=== PATIENT | male | born 1935 | race African-American/Black ===

== ENCOUNTER 2017-12-11 22:09 | Inpatient (IN) | payer MEDICARE, MEDICAID ==
[~2017-12-11] VITALS: Ht 177.8 cm; Wt 68.5 kg
--- NOTE | 2017-12-11 22:16 | Emergency Room Report ---
History of Present Illness General Chief Complaint: General Complaint Source: Family Member, Medical Record, EMS Present Illness HPI This is an 82-year-old male with a history dementia. He was sent in by [facility] for chief complaint of increased agitation. Onset for last few days per daughter. he has been pulling things off the wall and his dresser No focal deficit. No fever or chills. No slurred speech. History is from [facility] note and EMS since patient is not a good historian because of his dementia. Allergies: Coded Allergies: No Known Allergies (Unverified , 12/11/17) Patient History Past Medical History: see triage record, old chart reviewed Past Surgical History: other Pertinent Family History: none Social History: Denies: smoking Immunizations: other Reviewed Nursing Documentation: PMH: Agreed; PSxH: Agreed Nursing Documentation-PMH Past Medical History: No History, Except For Hx Hypertension: Yes - abnormal gait Hx Neurological Problems: Yes - unspecified dementia Review of Systems Eye: Denies: eye pain, blurred vision ENT: Denies: ear pain, nose congestion, throat swelling Respiratory: Denies: cough, shortness of breath Cardiovascular: Denies: chest pain, palpitations Gastrointestinal: Denies: abdominal pain, diarrhea, nausea, vomiting Musculoskeletal: Denies: back pain, joint pain Skin: Denies: rash Neurological: Denies: headache, numbness Endocrine: Denies: increased thirst, increased urine Hematologic/Lymphatic: Denies: easy bruising All Other Systems: negative except mentioned in HPI Physical Exam Vital Signs Date Time Temp Pulse Resp B/P (MAP) Pulse Ox O2 Delivery O2 Flow Rate FiO2 12/11/17 22:06 98.0 95 16 101/67 96 Room Air 98.1 vitals normal Sp02 EP Interpretation: reviewed, normal General Appearance: well appearing, no apparent distress, alert Head: normocephalic, atraumatic Eyes: bilateral eye PERRL, bilateral eye EOMI ENT: hearing grossly normal, normal pharynx Neck: full range of motion, supple, no meningismus Respiratory: chest non-tender, lungs clear, normal breath sounds Cardiovascular #1: regular rate, rhythm, no murmur Gastrointestinal: normal bowel sounds, non tender, no mass, no organomegaly, no bruit, non-distended Musculoskeletal: back normal, normal range of motion Neurologic: alert, grossly normal Psychiatric: mood/affect normal Skin: warm/dry Medical Decision Making Diagnostic Impression: Primary Impression: Acute encephalopathy Additional Impressions: Agitation Proteinuria Qualified Codes: R80.9 - Proteinuria, unspecified Dehydration ER Course Patient presents with increased agitation and delirium. No focal deficit. CT scan negative for acute stroke. No evidence of infection. This may be declining dementia. He does show some mild dehydration. We'll admit for further workup. I discussed the case with Dr. Jackson who will be admitting for Dr. Hernandez. I also discussed the case with Dr. Harvey, psychiatrist at the [facility]. She also recommends admission for psychiatric evaluation. Lab Results Impression labs unremarkable EKG Diagnostic Results Rate: normal Rhythm: NSR ST Segments: no acute changes Rhythm Strip Diag. Results Rhythm Strip Time: 23:14 EP Interpretation: yes Rate: 80 Rhythm: NSR, no PVC's, no ectopy CT/MRI/US Diagnostic Results CT/MRI/US Diagnostic Results : Imaging Test Ordered: Ct head Impression Neg per radiologist. Last Vital Signs Date Time Temp Pulse Resp B/P (MAP) Pulse Ox O2 Delivery O2 Flow Rate FiO2 12/11/17 22:06 98.0 95 16 101/67 96 Room Air 98.1 Status: improved Disposition: ADMITTED INPATIENT Condition: Serious NICOLETTE WALTERS M.D. Dec 11, 2017 22:16
[2017-12-11 22:43] LABS: BASOPHILS % (AUTO) 0.6 % (0.0-2.0); EOSINOPHILS % (AUTO) 0.6 % (0.0-3.0); HEMATOCRIT 42.2 % (42.0-52.0); HEMOGLOBIN 14.1 G/DL (14.2-18.0); LYMPHOCYTES % (AUTO) 21.2 % (20.0-45.0); MEAN CORPUSCULAR VOLUME 91 FL (80-99); MONOCYTES % (AUTO) 6.5 % (1.0-10.0); PLATELET COUNT 132 K/UL (150-450); RED BLOOD COUNT 4.62 M/UL (4.70-6.10); RED CELL DISTRIBUTION WIDTH 13.3 % (11.6-14.8); WHITE BLOOD COUNT 4.7 K/UL (4.8-10.8)
[2017-12-11] MEDS ORDERED: LORazepam Inj 2mg/ml 1ml IV PRN (22:45)
[2017-12-11] MEDS ORDERED: Miralax 17gm pkt ORAL PRN (22:45)
[2017-12-11] MEDS ORDERED: Zolpidem 5mg tab ORAL PRN (22:45)
[2017-12-11] MEDS ORDERED: Mylanta II UD 30ml ORAL PRN (22:45)
[2017-12-11 22:54] LABS: ANION GAP 5 mmol/L (5-15); BLOOD UREA NITROGEN 20 mg/dL (7-18); CALCIUM 9.7 MG/DL (8.5-10.1); CARBON DIOXIDE 30 MMOL/L (21-32); CHLORIDE 109 MMOL/L (98-107); CREATININE 1.4 MG/DL (0.55-1.30); POTASSIUM 3.7 MMOL/L (3.5-5.1); SODIUM 144 MMOL/L (136-145)
[2017-12-11 22:57] LABS: APPEARANCE,URINE SLIGHTLY CLOUDY; BILIRUBIN, URINE 1+ (NEGATIVE); GLUCOSE, URINE (UA) NEGATIVE (NEGATIVE); KETONES,URINE 1+ (NEGATIVE); LEUKOCYTE ESTERASE ,URINE 1+ (NEGATIVE); NITRITE,URINE NEGATIVE (NEGATIVE); PH,URINE 5 (4.5-8.0); PROTEIN,URINE 2+ (NEGATIVE); UROBILINOGEN,URINE 8 MG/DL (0.0-1.0)
[2017-12-11 22:58] LABS: COLOR,URINE AMBER
[2017-12-11] MEDS ORDERED: LORazepam Inj 2mg/ml 1ml IV ONE ×2 (23:15→23:45)
[2017-12-11] MEDS ORDERED: Morphine Sulfate 4mg/ml Inj IVP PRN (23:15)
[2017-12-11] MEDS ORDERED: Haloperidol 5mg/ml Inj IM ONE (23:45)
[2017-12-11] MEDS: Haloperidol 5mg/ml Inj IM PRN (23:51)
[2017-12-12] VITALS (8 sets, daily range): BP systolic 115–148; BP diastolic 65–89
[2017-12-12] MEDS ORDERED: MELATONIN1 M2 PO (00:57)
[2017-12-12] MEDS ORDERED: LATANOPROST2.5 ML BOTH EYES (00:57)
[2017-12-12] MEDS ORDERED: NAMENDA5 MG ORAL (00:57)
[2017-12-12] MEDS ORDERED: ATIVAN2 MG ORAL (00:57)
[2017-12-12] MEDS ORDERED: MULTIVITAMINS1 EAC2 ORAL (00:57)
[2017-12-12] MEDS ORDERED: ACETAMINOPHEN325 M1 ORAL (02:22)
--- NOTE | 2017-12-12 09:51 | Diagnostic Imaging Report ---
Indication: Altered mental status Technique: Contiguous 5 mm thick transaxial imaging of the head obtained in a Siemens Sensation [address] scanner. Soft tissue and bone windows generated. Automatic Exposure Control was utilized. Total Dose length Product (DLP): 1407.[address] Dose Index Volume (CTDIvol): 70.38 mGy Comparison: none Findings: There is moderate prominence of the ventricles, basal cisterns, and cerebral sulci consistent with atrophy. Moderate, nonspecific, white matter hypoattenuation is noted throughout the brain consistent with chronic small vessel disease. There is no midline shift, edema, acute hemorrhage, mass effect, or abnormal extra-axial fluid collections. Bones and extra osseous soft tissues are unremarkable. Impression: No acute intracranial bleed, mass effect or edema. Moderate atrophy of the brain. Evidence of chronic small vessel disease involving white matter tracts. The CT scanner at [facility] is accredited by the [employer] and the scans are performed using dose optimization techniques as appropriate to a performed exam including Automatic Exposure control.
[2017-12-12 10:22] LABS: HEMATOCRIT 39.8 % (42.0-52.0); HEMOGLOBIN 13.3 G/DL (14.2-18.0); MEAN CORPUSCULAR VOLUME 92 FL (80-99); PLATELET COUNT 104 K/UL (150-450); RED BLOOD COUNT 4.32 M/UL (4.70-6.10); RED CELL DISTRIBUTION WIDTH 13.4 % (11.6-14.8); WHITE BLOOD COUNT 3.4 K/UL (4.8-10.8)
[2017-12-12 10:53] LABS: ALANINE AMINOTRANSFERASE 25 U/L (12-78); ALBUMIN 3.3 G/DL (3.4-5.0); ALBUMIN/GLOBULIN RATIO 1.1 (1.0-2.7); ALKALINE PHOSPHATASE 66 U/L (46-116); ANION GAP 4 mmol/L (5-15); ASPARTATE AMINO TRANSFERASE 25 U/L (15-37); BILIRUBIN,TOTAL 0.8 MG/DL (0.2-1.0); BLOOD UREA NITROGEN 20 mg/dL (7-18); CALCIUM 9.2 MG/DL (8.5-10.1); CARBON DIOXIDE 29 MMOL/L (21-32); CHLORIDE 111 MMOL/L (98-107); CHOLESTEROL 113 MG/DL (< 200); CREATININE 1.2 MG/DL (0.55-1.30); HDL CHOLESTEROL 39 MG/DL (40-60); POTASSIUM 3.6 MMOL/L (3.5-5.1); SODIUM 144 MMOL/L (136-145); TRIGLYCERIDES 27 MG/DL (30-150)
--- NOTE | 2017-12-12 11:41 | History & Physical ---
History and Physical History & Physicial Dictated for Int Med-Dr Hernandez no. [id number]. MIGUEL JAEGER Dec 12, 2017 11:41
--- NOTE | 2017-12-12 12:13 | Consultation ---
History of Present Illness General Date patient seen: Dec 12, 2017 Chief Complaint: General Complaint Present Illness HPI 82-year-old male with a history dementia and mmp who was admitted for agitation and altered mental status. the pt was severely agitated and confused. the pt was unable to provide hx and i spoke with family. the pt was labile. family in room memory impairment Allergies: Coded Allergies: No Known Allergies (Unverified , 12/11/17) Medication History Scheduled Latanoprost* (Xalatan*), 1 DROP BOTH EYES BEDTIME, (Reported) Lorazepam* (Ativan*), 2 MG ORAL BEDTIME, (Reported) Melatonin (Melatonin), 3 MG PO BEDTIME, (Reported) Memantine Hcl* (Namenda*), 5 MG ORAL BID, (Reported) Multivitamins* (Multivitamins*), 1 TAB ORAL DAILY, (Reported) Scheduled PRN Acetaminophen* (Acetaminophen 325MG Tablet*), 650 MG ORAL Q4H PRN for For Pain, (Reported) Patient History Limited by: medical condition History Provided By: Patient, Medical Record, PMD Healthcare decision maker Resuscitation status Full Code Advanced Directive on File Past Medical/Surgical History Past Medical/Surgical History: (1) Dehydration (2) Proteinuria (3) Agitation (4) Alzheimer's dementia (5) Acute encephalopathy (6) ATN (acute tubular necrosis) Review of Systems Psychiatric: Reports: anxiety, depressed feelings, emotional problems, hallucinations Physical Exam General Appearance: no apparent distress, alert, confused, agitated Last 24 Hour Vital Signs Date Time Temp Pulse Resp B/P (MAP) Pulse Ox O2 Delivery O2 Flow Rate FiO2 12/12/17 09:00 97.8 74 16 148/89 100 Room Air 97.8 12/12/17 08:00 97.8 74 16 148/89 100 Room Air 97.8 12/12/17 04:00 96.5 71 16 132/80 100 Room Air 96.5 12/12/17 02:09 69 19 126/80 100 Room Air 12/12/17 02:00 98.3 66 13 121/70 100 Room Air 98.3 12/12/17 01:55 98.1 69 19 126/80 100 Room Air 98.1 12/12/17 01:41 98.1 76 24 129/72 98 Room Air 98.1 12/12/17 01:10 98.1 65 12 115/75 98 Room Air 98.1 12/11/17 22:06 98.0 95 16 101/67 96 Room Air 98.1 Laboratory Tests Test 12/11/17 22:30 12/11/17 22:40 12/12/17 09:50 White Blood Count 4.7 K/UL (4.8-10.8) L 3.4 K/UL (4.8-10.8) L Red Blood Count 4.62 M/UL (4.70-6.10) L 4.32 M/UL (4.70-6.10) L Hemoglobin 14.1 G/DL (14.2-18.0) L 13.3 G/DL (14.2-18.0) L Hematocrit 42.2 % (42.0-52.0) 39.8 % (42.0-52.0) L Mean Corpuscular Volume 91 FL (80-99) 92 FL (80-99) Mean Corpuscular Hemoglobin 30.6 PG (27.0-31.0) 30.7 PG (27.0-31.0) Mean Corpuscular Hemoglobin Concent 33.5 G/DL (32.0-36.0) 33.4 G/DL (32.0-36.0) Red Cell Distribution Width 13.3 % (11.6-14.8) 13.4 % (11.6-14.8) Platelet Count 132 K/UL (150-450) L 104 K/UL (150-450) L Mean Platelet Volume 8.7 FL (6.5-10.1) 9.0 FL (6.5-10.1) Neutrophils (%) (Auto) 71.0 % (45.0-75.0) % (45.0-75.0) Lymphocytes (%) (Auto) 21.2 % (20.0-45.0) % (20.0-45.0) Monocytes (%) (Auto) 6.5 % (1.0-10.0) % (1.0-10.0) Eosinophils (%) (Auto) 0.6 % (0.0-3.0) % (0.0-3.0) Basophils (%) (Auto) 0.6 % (0.0-2.0) % (0.0-2.0) Sodium Level 144 MMOL/L (136-145) 144 MMOL/L (136-145) Potassium Level 3.7 MMOL/L (3.5-5.1) 3.6 MMOL/L (3.5-5.1) Chloride Level 109 MMOL/L (98-107) H 111 MMOL/L (98-107) H Carbon Dioxide Level 30 MMOL/L (21-32) 29 MMOL/L (21-32) Anion Gap 5 mmol/L (5-15) 4 mmol/L (5-15) L Blood Urea Nitrogen 20 mg/dL (7-18) H 20 mg/dL (7-18) H Creatinine 1.4 MG/DL (0.55-1.30) H 1.2 MG/DL (0.55-1.30) Estimat Glomerular Filtration Rate mL/min (>60) mL/min (>60) Glucose Level 93 MG/DL (74-106) 102 MG/DL (74-106) Calcium Level 9.7 MG/DL (8.5-10.1) 9.2 MG/DL (8.5-10.1) Troponin I 0.010 ng/mL (0.000-0.056) Urine Color Ada Urine Appearance Slightly cloudy Urine pH 5 (4.5-8.0) Urine Specific [place] 1.025 (1.005-1.035) Urine Protein 2+ (NEGATIVE) H Urine Glucose (UA) Negative (NEGATIVE) Urine Ketones 1+ (NEGATIVE) H Urine Occult Blood 4+ (NEGATIVE) H Urine Nitrite Negative (NEGATIVE) Urine Bilirubin 1+ (NEGATIVE) H Urine Ictotest Positive Urine Urobilinogen 8 MG/DL (0.0-1.0) H Urine Leukocyte Esterase 1+ (NEGATIVE) H Urine RBC 10-15 /HPF (0 - 0) H Urine WBC 0-2 /HPF (0 - 0) Urine Squamous Epithelial Cells Occasional /LPF Urine Bacteria Few /HPF (NONE) Differential Total Cells Counted 100 Neutrophils % (Manual) 65 % (45-75) Lymphocytes % (Manual) 26 % (20-45) Monocytes % (Manual) 8 % (1-10) Eosinophils % (Manual) 1 % (0-3) Basophils % (Manual) 0 % (0-2) Band Neutrophils 0 % (0-8) Platelet Estimate Decreased L Platelet Morphology Normal Red Blood Cell Morphology Normal Total Bilirubin 0.8 MG/DL (0.2-1.0) Aspartate Amino Transf (AST/SGOT) 25 U/L (15-37) Alanine Aminotransferase (ALT/SGPT) 25 U/L (12-78) Alkaline Phosphatase 66 U/L (46-116) Total Protein 6.2 G/DL (6.4-8.2) L Albumin 3.3 G/DL (3.4-5.0) L Globulin 2.9 g/dL Albumin/Globulin Ratio 1.1 (1.0-2.7) Triglycerides Level 27 MG/DL (30-150) L Cholesterol Level 113 MG/DL (< 200) LDL Cholesterol 78 mg/dL (<100) HDL Cholesterol 39 MG/DL (40-60) L Cholesterol/HDL Ratio 2.9 (3.3-4.4) L Thyroid Stimulating Hormone (TSH) 2.086 uiU/mL (0.358-3.740) Height (Feet): 5 Height (Inches): 10.00 Weight (Pounds): 151 Medications Current Medications Medications (Trade) Dose Ordered Sig/Honey Route PRN Reason Start Time Stop Time Status Last Admin Dose Admin Acetaminophen (Tylenol) 650 mg Q4H PRN ORAL fever 12/11/17 22:45 01/10/18 22:44 Al Hydroxide/Mg Hydroxide (Mylanta II) 30 ml Q6H PRN ORAL dyspepsia 12/11/17 22:45 01/10/18 22:44 Ceftriaxone Sodium 1 gm/ Dextrose 110 ml @ 220 mls/hr Q24H IVPB 12/12/17 13:00 12/19/17 12:59 Dextrose (Dextrose 50%) STAT PRN IV Hypoglycemia 12/11/17 22:45 01/10/18 22:44 Dextrose/ Electrolytes 1,000 ml @ 75 mls/hr [id number] IV 12/12/17 12:30 01/11/18 12:29 Haloperidol Lactate (Haldol) 5 mg Q6H PRN IM Agitation 12/11/17 23:00 01/10/18 22:59 12/11/17 23:51 Lorazepam (Ativan 2mg/ml 1ml) 0.5 mg Q4H PRN IV For Anxiety 12/11/17 22:45 12/18/17 22:44 12/11/17 23:51 Morphine Sulfate (Morphine Sulfate) 1 mg Q4H PRN IVP pain 12/11/17 23:15 12/18/17 23:14 Ondansetron HCl (Zofran) 4 mg Q6H PRN IVP Nausea & Vomiting 12/11/17 22:45 01/10/18 22:44 Polyethylene Glycol (Miralax) 17 gm HSPRN PRN ORAL Constipation 12/11/17 22:45 01/10/18 22:44 Zolpidem Tartrate (Ambien) 5 mg HSPRN PRN ORAL Insomnia 12/11/17 22:45 12/18/17 22:44 Assessment/Plan Assessment/Plan dementia with behavioral disturbance encephalopathy -haldol prn -ativan prn -zyprexa -Libia Almaguer M.D. Dec 12, 2017 12:13
[2017-12-12] MEDS: Haloperidol 5mg/ml Inj IM PRN ×3 (12:27→21:15)
[2017-12-12] MEDS ORDERED: cefTRIAXone 1 GM in D5W 55 ML IVPB SCH (13:00)
[2017-12-12] MEDS ORDERED: cefTRIAXone 1 GM in D5W 110 ML IVPB SCH (13:00)
--- NOTE | 2017-12-12 13:26 | Consultation ---
History of Present Illness General Date patient seen: Dec 12, 2017 Chief Complaint: General Complaint Present Illness HPI 82-year-old male with a history dementia and psychiatric disorder, under the care of Dr. Wiggins, group home resident, sent in by paramedics for chief complaint of increased agitation. Onset for last few days per daughter. He has been pulling things off the wall and his dresser No focal deficit. No fever or chills. No slurred speech. He was found to have ATN, cloudy urine and admitted to med/surg for furhter evaluation. Allergies: Coded Allergies: No Known Allergies (Unverified , 12/11/17) Medication History Scheduled Latanoprost* (Xalatan*), 1 DROP BOTH EYES BEDTIME, (Reported) Lorazepam* (Ativan*), 2 MG ORAL BEDTIME, (Reported) Melatonin (Melatonin), 3 MG PO BEDTIME, (Reported) Memantine Hcl* (Namenda*), 5 MG ORAL BID, (Reported) Multivitamins* (Multivitamins*), 1 TAB ORAL DAILY, (Reported) Scheduled PRN Acetaminophen* (Acetaminophen 325MG Tablet*), 650 MG ORAL Q4H PRN for For Pain, (Reported) Patient History Healthcare decision maker Resuscitation status Full Code Advanced Directive on File Past Medical/Surgical History Past Medical/Surgical History: (1) Alzheimer's dementia Review of Systems Constitutional: Reports: no symptoms Hematologic/Lymphatic: Denies: no symptoms, see HPI, anemia, blood clots, easy bleeding, easy bruising, swollen glands, diathesis, other All Other Systems: negative except mentioned in HPI Physical Exam General Appearance: cachetic Lines, tubes and drains: peripheral HEENT: normocephalic, atraumatic Neck: non-tender, supple Respiratory/Chest: chest wall non-tender, lungs clear Breasts: no masses Cardiovascular/Chest: normal rate Abdomen: normal bowel sounds Genitourinary/Rectal: normal genital exam Last 24 Hour Vital Signs Date Time Temp Pulse Resp B/P (MAP) Pulse Ox O2 Delivery O2 Flow Rate FiO2 12/12/17 09:00 97.8 74 16 148/89 100 Room Air 97.8 12/12/17 08:00 97.8 74 16 148/89 100 Room Air 97.8 12/12/17 04:00 96.5 71 16 132/80 100 Room Air 96.5 12/12/17 02:09 69 19 126/80 100 Room Air 12/12/17 02:00 98.3 66 13 121/70 100 Room Air 98.3 12/12/17 01:55 98.1 69 19 126/80 100 Room Air 98.1 12/12/17 01:41 98.1 76 24 129/72 98 Room Air 98.1 12/12/17 01:10 98.1 65 12 115/75 98 Room Air 98.1 12/11/17 22:06 98.0 95 16 101/67 96 Room Air 98.1 Laboratory Tests Test 12/11/17 22:30 12/11/17 22:40 12/12/17 09:50 White Blood Count 4.7 K/UL (4.8-10.8) L 3.4 K/UL (4.8-10.8) L Red Blood Count 4.62 M/UL (4.70-6.10) L 4.32 M/UL (4.70-6.10) L Hemoglobin 14.1 G/DL (14.2-18.0) L 13.3 G/DL (14.2-18.0) L Hematocrit 42.2 % (42.0-52.0) 39.8 % (42.0-52.0) L Mean Corpuscular Volume 91 FL (80-99) 92 FL (80-99) Mean Corpuscular Hemoglobin 30.6 PG (27.0-31.0) 30.7 PG (27.0-31.0) Mean Corpuscular Hemoglobin Concent 33.5 G/DL (32.0-36.0) 33.4 G/DL (32.0-36.0) Red Cell Distribution Width 13.3 % (11.6-14.8) 13.4 % (11.6-14.8) Platelet Count 132 K/UL (150-450) L 104 K/UL (150-450) L Mean Platelet Volume 8.7 FL (6.5-10.1) 9.0 FL (6.5-10.1) Neutrophils (%) (Auto) 71.0 % (45.0-75.0) % (45.0-75.0) Lymphocytes (%) (Auto) 21.2 % (20.0-45.0) % (20.0-45.0) Monocytes (%) (Auto) 6.5 % (1.0-10.0) % (1.0-10.0) Eosinophils (%) (Auto) 0.6 % (0.0-3.0) % (0.0-3.0) Basophils (%) (Auto) 0.6 % (0.0-2.0) % (0.0-2.0) Sodium Level 144 MMOL/L (136-145) 144 MMOL/L (136-145) Potassium Level 3.7 MMOL/L (3.5-5.1) 3.6 MMOL/L (3.5-5.1) Chloride Level 109 MMOL/L (98-107) H 111 MMOL/L (98-107) H Carbon Dioxide Level 30 MMOL/L (21-32) 29 MMOL/L (21-32) Anion Gap 5 mmol/L (5-15) 4 mmol/L (5-15) L Blood Urea Nitrogen 20 mg/dL (7-18) H 20 mg/dL (7-18) H Creatinine 1.4 MG/DL (0.55-1.30) H 1.2 MG/DL (0.55-1.30) Estimat Glomerular Filtration Rate mL/min (>60) mL/min (>60) Glucose Level 93 MG/DL (74-106) 102 MG/DL (74-106) Calcium Level 9.7 MG/DL (8.5-10.1) 9.2 MG/DL (8.5-10.1) Troponin I 0.010 ng/mL (0.000-0.056) Urine Color Ada Urine Appearance Slightly cloudy Urine pH 5 (4.5-8.0) Urine Specific [place] 1.025 (1.005-1.035) Urine Protein 2+ (NEGATIVE) H Urine Glucose (UA) Negative (NEGATIVE) Urine Ketones 1+ (NEGATIVE) H Urine Occult Blood 4+ (NEGATIVE) H Urine Nitrite Negative (NEGATIVE) Urine Bilirubin 1+ (NEGATIVE) H Urine Ictotest Positive Urine Urobilinogen 8 MG/DL (0.0-1.0) H Urine Leukocyte Esterase 1+ (NEGATIVE) H Urine RBC 10-15 /HPF (0 - 0) H Urine WBC 0-2 /HPF (0 - 0) Urine Squamous Epithelial Cells Occasional /LPF Urine Bacteria Few /HPF (NONE) Differential Total Cells Counted 100 Neutrophils % (Manual) 65 % (45-75) Lymphocytes % (Manual) 26 % (20-45) Monocytes % (Manual) 8 % (1-10) Eosinophils % (Manual) 1 % (0-3) Basophils % (Manual) 0 % (0-2) Band Neutrophils 0 % (0-8) Platelet Estimate Decreased L Platelet Morphology Normal Red Blood Cell Morphology Normal Total Bilirubin 0.8 MG/DL (0.2-1.0) Aspartate Amino Transf (AST/SGOT) 25 U/L (15-37) Alanine Aminotransferase (ALT/SGPT) 25 U/L (12-78) Alkaline Phosphatase 66 U/L (46-116) Total Protein 6.2 G/DL (6.4-8.2) L Albumin 3.3 G/DL (3.4-5.0) L Globulin 2.9 g/dL Albumin/Globulin Ratio 1.1 (1.0-2.7) Triglycerides Level 27 MG/DL (30-150) L Cholesterol Level 113 MG/DL (< 200) LDL Cholesterol 78 mg/dL (<100) HDL Cholesterol 39 MG/DL (40-60) L Cholesterol/HDL Ratio 2.9 (3.3-4.4) L Thyroid Stimulating Hormone (TSH) 2.086 uiU/mL (0.358-3.740) Height (Feet): 5 Height (Inches): 10.00 Weight (Pounds): 151 Medications Current Medications Medications (Trade) Dose Ordered Sig/Honey Route PRN Reason Start Time Stop Time Status Last Admin Dose Admin Acetaminophen (Tylenol) 650 mg Q4H PRN ORAL fever 12/11/17 22:45 01/10/18 22:44 Al Hydroxide/Mg Hydroxide (Mylanta II) 30 ml Q6H PRN ORAL dyspepsia 12/11/17 22:45 01/10/18 22:44 Ceftriaxone Sodium 1 gm/ Dextrose 110 ml @ 220 mls/hr Q24H IVPB 12/12/17 13:00 12/19/17 12:59 Dextromethorphan/ Quinidine (Nuedexta Capsule) 1 cap DAILY ORAL 12/13/17 09:00 12/19/17 09:01 Dextromethorphan/ Quinidine (Nuedexta Capsule) 1 cap Q12HR ORAL 12/20/17 09:00 01/19/18 08:59 Dextrose (Dextrose 50%) STAT PRN IV Hypoglycemia 12/11/17 22:45 01/10/18 22:44 Dextrose/ Electrolytes 1,000 ml @ 75 mls/hr [id number] IV 12/12/17 12:30 01/11/18 12:29 Haloperidol Lactate (Haldol) 5 mg Q6H PRN IM Agitation 12/11/17 23:00 01/10/18 22:59 12/12/17 12:27 Lorazepam (Ativan 2mg/ml 1ml) 0.5 mg Q4H PRN IV For Anxiety 12/11/17 22:45 12/18/17 22:44 12/11/17 23:51 Morphine Sulfate (Morphine Sulfate) 1 mg Q4H PRN IVP pain 12/11/17 23:15 12/18/17 23:14 Olanzapine (ZyPREXA) 2.5 mg Q12HR ORAL 12/12/17 21:00 01/11/18 20:59 Ondansetron HCl (Zofran) 4 mg Q6H PRN IVP Nausea & Vomiting 12/11/17 22:45 01/10/18 22:44 Polyethylene Glycol (Miralax) 17 gm HSPRN PRN ORAL Constipation 12/11/17 22:45 01/10/18 22:44 Zolpidem Tartrate (Ambien) 5 mg HSPRN PRN ORAL Insomnia 12/11/17 22:45 12/18/17 22:44 Assessment/Plan Problem List: (1) Acute encephalopathy ICD Codes: G93.40 - Encephalopathy, unspecified SNOMED: 45383454, 831493773 (2) Agitation ICD Codes: R45.1 - Restlessness and agitation SNOMED: 128736190 (3) Proteinuria ICD Codes: R80.9 - Proteinuria, unspecified SNOMED: 11968811 Qualifiers: Qualified Codes: R80.9 - Proteinuria, unspecified (4) Dehydration ICD Codes: E86.0 - Dehydration SNOMED: 59406395 (5) Alzheimer's dementia ICD Codes: G30.9 - Alzheimer's disease, unspecified; F02.80 - Dementia in other diseases classified elsewhere without behavioral disturbance SNOMED: 79328936 (6) ATN (acute tubular necrosis) ICD Codes: N17.0 - Acute kidney failure with tubular necrosis SNOMED: 55693462 Assessment/Plan iv fluids renal studies, urine electrolytes renal US psych evaluation dvt prophylaxis symptomatic treatment consider closed facility Jad Jackson MD Dec 12, 2017 13:26
[2017-12-12] MEDS: D5 1/2NS w/KCl 20mEq 1,000 ML IV SCH (13:32)
--- NOTE | 2017-12-12 17:02 | Cardiology Report ---
APPROVED REPORT EKG Measurement Heart [id number] Normal sinus rhythm Normal ECG
[2017-12-12] MEDS: DiphenhydrAMINE 50mg/ml Inj IM PRN ×2 (17:08→21:15)
--- NOTE | 2017-12-12 18:30 | History and Physical Report ---
DATE OF ADMISSION: 12/11/2017 CHIEF COMPLAINT: The patient is an 82-year-old male, presents with chief complaint of altered mental status. HISTORY OF PRESENT ILLNESS: The patient is a resident of [facility]. The patient himself is unable to contribute much to the history and physical due to altered mental status. The patient's son, haily Hull, is present at the bedside. Much of the history and physical was obtained from the patient's son, Kurtis Siegel. According to staff at [facility], the patient has become increasingly agitated since the of his 12/07/2017. The patient's behavior was escalated. The patient was pulling stuff off the [place]. The patient was throwing stuff off of the dressers. The patient presented to [facility] emergency room. The patient was admitted with altered mental status and urinary tract infection. REVIEW OF SYSTEMS: Unable to assess secondary to the patient's mental status. PAST MEDICAL HISTORY: Significant for, 1. Hypertension. 2. Alzheimer's dementia. PAST SURGICAL HISTORY: The patient denies. CURRENT MEDICATIONS: 1. Tylenol 650 mg 1 p.o. q.4 h. p.r.n. pain or fever. 2. Melatonin 3 mg p.o. at bedtime p.r.n. 3. Namenda 5 mg p.o. twice daily. 4. Xalatan 0.005% one drop in both eyes at bedtime. ALLERGIES: No known drug allergies. SOCIAL HISTORY: The patient is now a . The patient is a resident of [facility]. The patient denies tobacco or alcohol use. PHYSICAL EXAMINATION: VITAL SIGNS: Temperature 98.1, respirations 19, pulse 69, blood pressure 126/80. GENERAL: The patient is thin-appearing, male, in no apparent distress. HEENT: Eyes, pupils are equal and responsive to light and accommodation. Extraocular movements are intact. NECK: Supple without lymphadenopathy. CHEST: Lungs are clear to auscultation bilaterally without wheezes or rales. CARDIOVASCULAR: Regular rate. S1 and S2 are normal without murmurs, rubs, or gallops. ABDOMEN: Soft, nontender, and nondistended. Positive bowel sounds. No evidence of hepatosplenomegaly. Currently, no rebound or guarding noted. EXTREMITIES: Negative for clubbing, cyanosis, or edema. RECTAL/GENITAL: Not performed. NEUROLOGIC: Cranial nerves II through XII are grossly intact without focal deficits. Motor strength is 5/5 bilaterally. Deep tendon reflexes are 2+ plantar. LABORATORY STUDIES: WBC 4.7, hemoglobin 14.1, hematocrit 42.2, and platelets 132,000. Sodium 144, potassium 3.7, chloride 109, CO2 30, BUN 20, creatinine 1.4, and glucose 93. Urinalysis showed 2+ protein 1+ ketones, 4+ occult blood, 1+ bilirubin, leukocyte esterase is 1+ with 10 to 15 rbc's. Urine culture is pending. ASSESSMENT: This is an 82-year-old, male, 1. Urinary tract infection. 2. Altered mental status. 3. Hypertension. 4. Alzheimer's dementia. 5. Glaucoma. TREATMENT: 1. Urinary tract infection. Urine culture is pending. The patient has been started empirically on intravenous ceftriaxone. Await urine cultures as above. 2. Altered mental status. This may be secondary to urinary tract infection as above. 3. Hypertension. The patient is currently hypotensive. 4. Alzheimer's dementia. Continue Namenda as above. 5. Glaucoma. Continue Xalatan as above. Edwardo Camara M.D. DR: LIZETH JOB#: [id number] CC:
[2017-12-12] MEDS: OLANZapine 2.5mg tab ORAL SCH (21:01)
[2017-12-12] MEDS: LORazepam Inj 2mg/ml 1ml IM PRN (23:08)
[2017-12-13 00:52] VITALS: BP 128/86
[2017-12-13] MEDS: D5 1/2NS w/KCl 20mEq 1,000 ML IV SCH ×2 (01:50→15:10)
[2017-12-13 06:00] VITALS: BP 116/81
[2017-12-13 07:21] LABS: HEMATOCRIT 38.6 % (42.0-52.0); MEAN CORPUSCULAR VOLUME 91 FL (80-99); PLATELET COUNT 126 K/UL (150-450); RED BLOOD COUNT 4.25 M/UL (4.70-6.10); RED CELL DISTRIBUTION WIDTH 13.5 % (11.6-14.8); WHITE BLOOD COUNT 3.4 K/UL (4.8-10.8)
[2017-12-13 07:45] LABS: ALANINE AMINOTRANSFERASE 31 U/L (12-78); ALBUMIN 3.3 G/DL (3.4-5.0); ALBUMIN/GLOBULIN RATIO 1.1 (1.0-2.7); ALKALINE PHOSPHATASE 67 U/L (46-116); ANION GAP 6 mmol/L (5-15); ASPARTATE AMINO TRANSFERASE 45 U/L (15-37); BLOOD UREA NITROGEN 15 mg/dL (7-18); CALCIUM 9.2 MG/DL (8.5-10.1); CARBON DIOXIDE 28 MMOL/L (21-32); CHLORIDE 110 MMOL/L (98-107); CREATININE 1.2 MG/DL (0.55-1.30); POTASSIUM 3.5 MMOL/L (3.5-5.1); SODIUM 144 MMOL/L (136-145)
[2017-12-13 08:00] VITALS: BP 116/74
[2017-12-13 08:15] LABS: PHOSPHORUS 3.5 MG/DL (2.5-4.9)
[2017-12-13] MEDS: Haloperidol 5mg/ml Inj IM PRN ×3 (10:08→23:16)
[2017-12-13] MEDS: OLANZapine 2.5mg tab ORAL SCH ×2 (10:08→20:44)
[2017-12-13] MEDS: Nuedexta Capsule 20/10mg ORAL SCH (10:08)
[2017-12-13] MEDS: LORazepam Inj 2mg/ml 1ml IM PRN ×2 (11:17→16:50)
--- NOTE | 2017-12-13 12:50 | Pulmonology Progress Note ---
Assessment/Plan Problems: (1) Acute encephalopathy (2) Agitation (3) Proteinuria (4) Dehydration (5) Alzheimer's dementia (6) ATN (acute tubular necrosis) Assessment/Plan pt pulled iv line change iv abx to po levofloxacin f/u by psychiatry. Subjective ROS Limited/Unobtainable: No Interval Events: was agitated earlier Allergies: Coded Allergies: No Known Allergies (Unverified , 12/11/17) Objective Last 24 Hour Vital Signs Date Time Temp Pulse Resp B/P (MAP) Pulse Ox O2 Delivery O2 Flow Rate FiO2 12/13/17 08:00 97.2 73 17 116/74 96 97.2 12/13/17 06:00 97.7 72 20 116/81 97 Room Air 97.7 12/13/17 00:52 97.2 100 18 128/86 98 Room Air 97.2 12/12/17 20:00 97.7 85 18 117/65 99 Room Air 97.7 Intake and Output 12/12/17 12/13/17 19:00 07:00 Intake Total 305 ml 100 ml Output Total 0 ml Balance 305 ml 100 ml Intake Oral 100 ml IV Total 185 ml Other 120 ml Output Stool Total 0 ml # Voids 1 1 General Appearance: WD/WN HEENT: normocephalic, atraumatic Respiratory/Chest: chest wall non-tender, lungs clear Cardiovascular: normal peripheral pulses, normal rate Abdomen: normal bowel sounds, no organomegaly Genitourinary: normal external genitalia Skin: no lesions Neurologic/Psychiatric: document control manager II-XII grossly normal Lymphatic: no neck adenopathy Laboratory Tests 12/13/17 07:00: White Blood Count 3.4L, Red Blood Count 4.25L, Hemoglobin 13.0L, Hematocrit 38.6L, Mean Corpuscular Volume 91, Mean Corpuscular Hemoglobin 30.7, Mean Corpuscular Hemoglobin Concent 33.8, Red Cell Distribution Width 13.5, Platelet Count 126L, Mean Platelet Volume 7.7, Neutrophils (%) (Auto) , Lymphocytes (%) ( Auto) , Monocytes (%) (Auto) , Eosinophils (%) (Auto) , Basophils (%) (Auto) , Differential Total Cells Counted 100, Neutrophils % (Manual) 66, Lymphocytes % ( Manual) 25, Monocytes % (Manual) 5, Eosinophils % (Manual) 2, Basophils % ( Manual) 2, Band Neutrophils 0, Platelet Estimate Adequate, Platelet Morphology Normal, Erythrocyte Sedimentation Rate 14, Sodium Level 144, Potassium Level 3.5 , Chloride Level 110H, Carbon Dioxide Level 28, Anion Gap 6, Blood Urea Nitrogen 15, Creatinine 1.2, Estimat Glomerular Filtration Rate , Glucose Level 78, Calcium Level 9.2, Phosphorus Level 3.5, Magnesium Level 1.9, Total Bilirubin 1.0, Aspartate Amino Transf (AST/SGOT) 45H, Alanine Aminotransferase ( ALT/SGPT) 31, Alkaline Phosphatase 67, C-Reactive Protein, Quantitative < 0.4, Total Protein 6.2L, Albumin 3.3L, Globulin 2.9, Albumin/Globulin Ratio 1.1 Current Medications Medications (Trade) Dose Ordered Sig/Honey Route PRN Reason Start Time Stop Time Status Last Admin Dose Admin Acetaminophen (Tylenol) 650 mg Q4H PRN ORAL fever 12/11/17 22:45 01/10/18 22:44 Al Hydroxide/Mg Hydroxide (Mylanta II) 30 ml Q6H PRN ORAL dyspepsia 12/11/17 22:45 01/10/18 22:44 Ceftriaxone Sodium 1 gm/ Dextrose 110 ml @ 220 mls/hr Q24H IVPB 12/12/17 13:00 12/19/17 12:59 12/12/17 13:33 Dextromethorphan/ Quinidine (Nuedexta Capsule) 1 cap DAILY ORAL 12/13/17 09:00 12/19/17 09:01 12/13/17 10:08 Dextromethorphan/ Quinidine (Nuedexta Capsule) 1 cap Q12HR ORAL 12/20/17 09:00 01/19/18 08:59 Dextrose (Dextrose 50%) STAT PRN IV Hypoglycemia 12/11/17 22:45 01/10/18 22:44 Dextrose/ Electrolytes 1,000 ml @ 75 mls/hr [id number] IV 12/12/17 12:30 01/11/18 12:29 12/12/17 13:32 Diphenhydramine HCl (Benadryl) 25 mg Q4HR PRN IM Agitation 12/12/17 16:45 01/11/18 16:44 12/12/17 21:15 Haloperidol Lactate (Haldol) 5 mg Q4HR PRN IM Agitation 12/12/17 16:45 01/10/18 22:59 12/13/17 10:08 Lorazepam (Ativan 2mg/ml 1ml) 0.5 mg Q4H PRN IM For Anxiety 12/12/17 18:45 12/18/17 22:44 12/13/17 11:17 Morphine Sulfate (Morphine Sulfate) 1 mg Q4H PRN IVP pain 12/11/17 23:15 12/18/17 23:14 Olanzapine (ZyPREXA) 2.5 mg Q12HR ORAL 12/12/17 21:00 01/11/18 20:59 12/13/17 10:08 Ondansetron HCl (Zofran) 4 mg Q6H PRN IVP Nausea & Vomiting 12/11/17 22:45 01/10/18 22:44 Polyethylene Glycol (Miralax) 17 gm HSPRN PRN ORAL Constipation 12/11/17 22:45 01/10/18 22:44 Zolpidem Tartrate (Ambien) 5 mg HSPRN PRN ORAL Insomnia 12/11/17 22:45 12/18/17 22:44 Jad Jackson MD Dec 13, 2017 12:50
[2017-12-13] MEDS: DiphenhydrAMINE 50mg/ml Inj IM PRN ×2 (13:32→23:15)
[2017-12-13] MEDS: Levofloxacin 500mg tab ORAL SCH (14:00)
[2017-12-13 16:00] VITALS: BP 121/74
--- NOTE | 2017-12-13 17:30 | Internal Med Progress Note ---
Subjective Date of Service: Dec 13, 2017 Physician Name JaegerEdwardo Attending Physician Young Hernandez MD Current Medications Medications (Trade) Dose Ordered Sig/Honey Route PRN Reason Start Time Stop Time Status Last Admin Dose Admin Acetaminophen (Tylenol) 650 mg Q4H PRN ORAL fever 12/11/17 22:45 01/10/18 22:44 Al Hydroxide/Mg Hydroxide (Mylanta II) 30 ml Q6H PRN ORAL dyspepsia 12/11/17 22:45 01/10/18 22:44 Dextromethorphan/ Quinidine (Nuedexta Capsule) 1 cap DAILY ORAL 12/13/17 09:00 12/19/17 09:01 12/13/17 10:08 Dextromethorphan/ Quinidine (Nuedexta Capsule) 1 cap Q12HR ORAL 12/20/17 09:00 01/19/18 08:59 Dextrose (Dextrose 50%) STAT PRN IV Hypoglycemia 12/11/17 22:45 01/10/18 22:44 Dextrose/ Electrolytes 1,000 ml @ 75 mls/hr [id number] IV 12/12/17 12:30 01/11/18 12:29 12/12/17 13:32 Diphenhydramine HCl (Benadryl) 25 mg Q4HR PRN IM Agitation 12/12/17 16:45 01/11/18 16:44 12/13/17 13:32 Haloperidol Lactate (Haldol) 5 mg Q4HR PRN IM Agitation 12/12/17 16:45 01/10/18 22:59 12/13/17 14:31 Levofloxacin (Levaquin) 500 mg DAILY@1000 ORAL 12/13/17 14:00 12/20/17 13:59 12/13/17 14:00 Lorazepam (Ativan 2mg/ml 1ml) 0.5 mg Q4H PRN IM For Anxiety 12/12/17 18:45 12/18/17 22:44 12/13/17 16:50 Morphine Sulfate (Morphine Sulfate) 1 mg Q4H PRN IVP pain 12/11/17 23:15 12/18/17 23:14 Olanzapine (ZyPREXA) 2.5 mg Q12HR ORAL 12/12/17 21:00 01/11/18 20:59 12/13/17 10:08 Ondansetron HCl (Zofran) 4 mg Q6H PRN IVP Nausea & Vomiting 12/11/17 22:45 01/10/18 22:44 Polyethylene Glycol (Miralax) 17 gm HSPRN PRN ORAL Constipation 12/11/17 22:45 01/10/18 22:44 Zolpidem Tartrate (Ambien) 5 mg HSPRN PRN ORAL Insomnia 12/11/17 22:45 12/18/17 22:44 Allergies: Coded Allergies: No Known Allergies (Unverified , 12/11/17) ROS Limited/Unobtainable: Yes Subjective 82 YO M admitted with altered mental status. Now UTI. Cover for Int Med-Dr Hernandez Objective Last Vital Signs Date Time Temp Pulse Resp B/P (MAP) Pulse Ox O2 Delivery O2 Flow Rate FiO2 12/13/17 08:00 97.2 73 17 116/74 96 97.2 12/13/17 06:00 Room Air General Appearance: thin, agitated, combative EENT: PERRL/EOMI, normal ENT inspection Neck: non-tender, normal alignment, supple Cardiovascular: normal peripheral pulses, normal rate, regular rhythm, no gallop/murmur, no JVD Respiratory/Chest: chest wall non-tender, lungs clear, normal breath sounds, no respiratory distress, no accessory muscle use Abdomen: normal bowel sounds, non tender, soft, no organomegaly, no mass Extremities: normal range of motion, non-tender Neurologic: weigher alloy II-XII grossly normal, no motor/sensory deficits Skin: normal pigmentation, warm/dry Laboratory Tests Test 12/13/17 07:00 White Blood Count 3.4 K/UL (4.8-10.8) L Red Blood Count 4.25 M/UL (4.70-6.10) L Hemoglobin 13.0 G/DL (14.2-18.0) L Hematocrit 38.6 % (42.0-52.0) L Mean Corpuscular Volume 91 FL (80-99) Mean Corpuscular Hemoglobin 30.7 PG (27.0-31.0) Mean Corpuscular Hemoglobin Concent 33.8 G/DL (32.0-36.0) Red Cell Distribution Width 13.5 % (11.6-14.8) Platelet Count 126 K/UL (150-450) L Mean Platelet Volume 7.7 FL (6.5-10.1) Neutrophils (%) (Auto) % (45.0-75.0) Lymphocytes (%) (Auto) % (20.0-45.0) Monocytes (%) (Auto) % (1.0-10.0) Eosinophils (%) (Auto) % (0.0-3.0) Basophils (%) (Auto) % (0.0-2.0) Differential Total Cells Counted 100 Neutrophils % (Manual) 66 % (45-75) Lymphocytes % (Manual) 25 % (20-45) Monocytes % (Manual) 5 % (1-10) Eosinophils % (Manual) 2 % (0-3) Basophils % (Manual) 2 % (0-2) Band Neutrophils 0 % (0-8) Platelet Estimate Adequate Platelet Morphology Normal Erythrocyte Sedimentation Rate 14 MM/HR (0-20) Sodium Level 144 MMOL/L (136-145) Potassium Level 3.5 MMOL/L (3.5-5.1) Chloride Level 110 MMOL/L (98-107) H Carbon Dioxide Level 28 MMOL/L (21-32) Anion Gap 6 mmol/L (5-15) Blood Urea Nitrogen 15 mg/dL (7-18) Creatinine 1.2 MG/DL (0.55-1.30) Estimat Glomerular Filtration Rate mL/min (>60) Glucose Level 78 MG/DL (74-106) Calcium Level 9.2 MG/DL (8.5-10.1) Phosphorus Level 3.5 MG/DL (2.5-4.9) Magnesium Level 1.9 MG/DL (1.8-2.4) Total Bilirubin 1.0 MG/DL (0.2-1.0) Aspartate Amino Transf (AST/SGOT) 45 U/L (15-37) H Alanine Aminotransferase (ALT/SGPT) 31 U/L (12-78) Alkaline Phosphatase 67 U/L (46-116) C-Reactive Protein, Quantitative < 0.4 mg/dL (0.00-0.90) Total Protein 6.2 G/DL (6.4-8.2) L Albumin 3.3 G/DL (3.4-5.0) L Globulin 2.9 g/dL Albumin/Globulin Ratio 1.1 (1.0-2.7) Intake and Output 12/12/17 12/13/17 19:00 07:00 Intake Total 305 ml 100 ml Output Total 0 ml Balance 305 ml 100 ml Intake Oral 100 ml IV Total 185 ml Other 120 ml Output Stool Total 0 ml # Voids 1 1 Assessment/Plan Problem List: (1) UTI (urinary tract infection) Assessment & Plan: Continue levaquin and ceftriaxone (2) HTN (hypertension) (3) Glaucoma (4) Acute encephalopathy (5) Agitation Assessment & Plan: 1:1 sitter (6) Alzheimer's dementia Status: not improved EDWARDO JAEGER Dec 13, 2017 17:30
[2017-12-13 20:00] VITALS: BP 132/84
--- NOTE | 2017-12-13 22:59 | General Progress Note ---
Subjective Date patient seen: Dec 13, 2017 Neurologic/Psychiatric: Reports: anxiety, emotional problems Allergies: Coded Allergies: No Known Allergies (Unverified , 12/11/17) Objective Last 24 Hour Vital Signs Date Time Temp Pulse Resp B/P (MAP) Pulse Ox O2 Delivery O2 Flow Rate FiO2 12/13/17 20:00 96.8 79 18 132/84 96 96.8 12/13/17 16:00 97.1 87 17 121/74 97 97.1 12/13/17 08:00 97.2 73 17 116/74 96 97.2 12/13/17 06:00 97.7 72 20 116/81 97 Room Air 97.7 12/13/17 00:52 97.2 100 18 128/86 98 Room Air 97.2 Intake and Output 12/12/17 12/13/17 19:00 07:00 Intake Total 305 ml 100 ml Output Total 0 ml Balance 305 ml 100 ml Intake Oral 100 ml IV Total 185 ml Other 120 ml Output Stool Total 0 ml # Voids 1 1 Laboratory Tests 12/13/17 07:00: White Blood Count 3.4L, Red Blood Count 4.25L, Hemoglobin 13.0L, Hematocrit 38.6L, Mean Corpuscular Volume 91, Mean Corpuscular Hemoglobin 30.7, Mean Corpuscular Hemoglobin Concent 33.8, Red Cell Distribution Width 13.5, Platelet Count 126L, Mean Platelet Volume 7.7, Neutrophils (%) (Auto) , Lymphocytes (%) ( Auto) , Monocytes (%) (Auto) , Eosinophils (%) (Auto) , Basophils (%) (Auto) , Differential Total Cells Counted 100, Neutrophils % (Manual) 66, Lymphocytes % ( Manual) 25, Monocytes % (Manual) 5, Eosinophils % (Manual) 2, Basophils % ( Manual) 2, Band Neutrophils 0, Platelet Estimate Adequate, Platelet Morphology Normal, Erythrocyte Sedimentation Rate 14, Sodium Level 144, Potassium Level 3.5 , Chloride Level 110H, Carbon Dioxide Level 28, Anion Gap 6, Blood Urea Nitrogen 15, Creatinine 1.2, Estimat Glomerular Filtration Rate , Glucose Level 78, Calcium Level 9.2, Phosphorus Level 3.5, Magnesium Level 1.9, Total Bilirubin 1.0, Aspartate Amino Transf (AST/SGOT) 45H, Alanine Aminotransferase ( ALT/SGPT) 31, Alkaline Phosphatase 67, C-Reactive Protein, Quantitative < 0.4, Total Protein 6.2L, Albumin 3.3L, Globulin 2.9, Albumin/Globulin Ratio 1.1 Height (Feet): 5 Height (Inches): 10.00 Weight (Pounds): 151 General Appearance: no apparent distress, confused, agitated Libia Wiggins M.D. Dec 13, 2017 22:59
[2017-12-13 23:15] VITALS: BP 146/95
[2017-12-14 01:00] VITALS: BP 140/86
[2017-12-14] MEDS: LORazepam Inj 2mg/ml 1ml IM PRN ×2 (01:15→07:08)
[2017-12-14 04:00] VITALS: BP 135/83
[2017-12-14] MEDS: D5 1/2NS w/KCl 20mEq 1,000 ML IV SCH (04:30)
[2017-12-14] MEDS: Haloperidol 5mg/ml Inj IM PRN (05:18)
[2017-12-14] MEDS: DiphenhydrAMINE 50mg/ml Inj IM PRN (05:19)
[2017-12-14 08:00] VITALS: BP 112/74
[2017-12-14 08:15] LABS: EOSINOPHILS % (AUTO) 0.6 % (0.0-3.0); HEMATOCRIT 44.3 % (42.0-52.0); HEMOGLOBIN 14.8 G/DL (14.2-18.0); LYMPHOCYTES % (AUTO) 15.8 % (20.0-45.0); MEAN CORPUSCULAR VOLUME 91 FL (80-99); MONOCYTES % (AUTO) 9.7 % (1.0-10.0); NEUTROPHILS % (AUTO) 72.9 % (45.0-75.0); PLATELET COUNT 120 K/UL (150-450); RED BLOOD COUNT 4.85 M/UL (4.70-6.10); RED CELL DISTRIBUTION WIDTH 13.4 % (11.6-14.8); WHITE BLOOD COUNT 5.4 K/UL (4.8-10.8)
[2017-12-14] MEDS: Nuedexta Capsule 20/10mg ORAL SCH (08:41)
[2017-12-14 08:54] LABS: ALANINE AMINOTRANSFERASE 45 U/L (12-78); ALBUMIN 3.5 G/DL (3.4-5.0); ALKALINE PHOSPHATASE 78 U/L (46-116); ANION GAP 9 mmol/L (5-15); ASPARTATE AMINO TRANSFERASE 85 U/L (15-37); BILIRUBIN,TOTAL 1.2 MG/DL (0.2-1.0); BLOOD UREA NITROGEN 12 mg/dL (7-18); CALCIUM 9.4 MG/DL (8.5-10.1); CARBON DIOXIDE 27 MMOL/L (21-32); CHLORIDE 107 MMOL/L (98-107); CREATININE 1.1 MG/DL (0.55-1.30); PHOSPHORUS 2.7 MG/DL (2.5-4.9); POTASSIUM 3.5 MMOL/L (3.5-5.1); SODIUM 143 MMOL/L (136-145)
[2017-12-14 08:56] LABS: BILIRUBIN,DIRECT 0.3 MG/DL (0.0-0.3)
[2017-12-14] MEDS ORDERED: OLANZapine 2.5mg tab ORAL SCH (09:00)
[2017-12-14] MEDS: Levofloxacin 500mg tab ORAL SCH (10:40)
[2017-12-14 12:00] VITALS: BP 132/87
--- NOTE | 2017-12-14 13:03 | General Progress Note ---
Assessment/Plan Status: stable, progressing Assessment/Plan dementia with behavioral dist encephalopathy -zyprexa -nuedextra -prn ativan Subjective Date patient seen: Dec 14, 2017 Neurologic/Psychiatric: Reports: emotional problems Allergies: Coded Allergies: No Known Allergies (Unverified , 12/11/17) Subjective the pt is calm today. no agitation. Objective Last 24 Hour Vital Signs Date Time Temp Pulse Resp B/P (MAP) Pulse Ox O2 Delivery O2 Flow Rate FiO2 12/14/17 12:00 97.0 96 19 132/87 95 97.0 12/14/17 08:00 96.0 84 17 112/74 95 96.0 12/14/17 04:00 97.0 68 18 135/83 92 97.0 12/14/17 01:00 97.3 84 20 140/86 93 97.3 12/13/17 23:15 97.1 89 19 146/95 93 97.1 12/13/17 20:00 96.8 79 18 132/84 96 96.8 12/13/17 16:00 97.1 87 17 121/74 97 97.1 Intake and Output 12/13/17 12/14/17 19:00 07:00 Intake Total 550 ml 240 ml Balance 550 ml 240 ml Intake Oral 550 ml 240 ml # Voids 5 1 Laboratory Tests 12/14/17 07:50: White Blood Count 5.4#, Red Blood Count 4.85, Hemoglobin 14.8, Hematocrit 44.3, Mean Corpuscular Volume 91, Mean Corpuscular Hemoglobin 30.5, Mean Corpuscular Hemoglobin Concent 33.4, Red Cell Distribution Width 13.4, Platelet Count 120L, Mean Platelet Volume 8.1, Neutrophils (%) (Auto) 72.9, Lymphocytes (%) (Auto) 15.8L, Monocytes (%) (Auto) 9.7, Eosinophils (%) (Auto) 0.6, Basophils (%) (Auto ) 1.0, Sodium Level 143, Potassium Level 3.5, Chloride Level 107, Carbon Dioxide Level 27, Anion Gap 9, Blood Urea Nitrogen 12, Creatinine 1.1, Estimat Glomerular Filtration Rate , Glucose Level 88, Calcium Level 9.4, Phosphorus Level 2.7, Magnesium Level 1.9, Total Bilirubin 1.2H, Direct Bilirubin 0.3, Aspartate Amino Transf (AST/SGOT) 85H, Alanine Aminotransferase (ALT/SGPT) 45, Alkaline Phosphatase 78, Total Protein 7.0, Albumin 3.5, Globulin 3.5, Albumin/ Globulin Ratio 1.0 Height (Feet): 5 Height (Inches): 10.00 Weight (Pounds): 151 General Appearance: no apparent distress, confused Libia Wiggins M.D. Dec 14, 2017 13:03
[2017-12-14 16:00] VITALS: BP 132/70
[2017-12-14] MEDS ORDERED: AMBIEN5 MG ORAL (16:57)
[2017-12-14] MEDS ORDERED: POLYETHYLENE GLY1 G1 MC (16:59)
[2017-12-14] MEDS ORDERED: OLANZAPINE5 MG ORAL (17:02)
[2017-12-14] MEDS ORDERED: LEVOFLOXACIN500 MG ORAL (17:03)
[2017-12-14] MEDS ORDERED: ACETAMINOPHEN325 M1 ORAL (17:06)
[2017-12-14] MEDS ORDERED: HALOPERIDOL5 MG/1 ML IJ (17:11)
--- NOTE | 2017-12-14 18:25 | Internal Med Progress Note ---
Subjective Date of Service: Dec 14, 2017 Physician Name Edwardo Jaeger Attending Physician Young Hernandez MD Allergies: Coded Allergies: No Known Allergies (Unverified , 12/11/17) ROS Limited/Unobtainable: Yes Subjective 82 YO M admitted with altered mental status. Now UTI. Cover for Int Med-Dr Hernandez. Await transfer to [facility] Objective Last Vital Signs Date Time Temp Pulse Resp B/P (MAP) Pulse Ox O2 Delivery O2 Flow Rate FiO2 12/14/17 16:00 98.9 92 19 132/70 95 98.9 12/13/17 06:00 Room Air Laboratory Tests Test 12/14/17 07:50 White Blood Count 5.4 K/UL (4.8-10.8) # Red Blood Count 4.85 M/UL (4.70-6.10) Hemoglobin 14.8 G/DL (14.2-18.0) Hematocrit 44.3 % (42.0-52.0) Mean Corpuscular Volume 91 FL (80-99) Mean Corpuscular Hemoglobin 30.5 PG (27.0-31.0) Mean Corpuscular Hemoglobin Concent 33.4 G/DL (32.0-36.0) Red Cell Distribution Width 13.4 % (11.6-14.8) Platelet Count 120 K/UL (150-450) L Mean Platelet Volume 8.1 FL (6.5-10.1) Neutrophils (%) (Auto) 72.9 % (45.0-75.0) Lymphocytes (%) (Auto) 15.8 % (20.0-45.0) L Monocytes (%) (Auto) 9.7 % (1.0-10.0) Eosinophils (%) (Auto) 0.6 % (0.0-3.0) Basophils (%) (Auto) 1.0 % (0.0-2.0) Sodium Level 143 MMOL/L (136-145) Potassium Level 3.5 MMOL/L (3.5-5.1) Chloride Level 107 MMOL/L (98-107) Carbon Dioxide Level 27 MMOL/L (21-32) Anion Gap 9 mmol/L (5-15) Blood Urea Nitrogen 12 mg/dL (7-18) Creatinine 1.1 MG/DL (0.55-1.30) Estimat Glomerular Filtration Rate mL/min (>60) Glucose Level 88 MG/DL (74-106) Calcium Level 9.4 MG/DL (8.5-10.1) Phosphorus Level 2.7 MG/DL (2.5-4.9) Magnesium Level 1.9 MG/DL (1.8-2.4) Total Bilirubin 1.2 MG/DL (0.2-1.0) H Direct Bilirubin 0.3 MG/DL (0.0-0.3) Aspartate Amino Transf (AST/SGOT) 85 U/L (15-37) H Alanine Aminotransferase (ALT/SGPT) 45 U/L (12-78) Alkaline Phosphatase 78 U/L (46-116) Total Protein 7.0 G/DL (6.4-8.2) Albumin 3.5 G/DL (3.4-5.0) Globulin 3.5 g/dL Albumin/Globulin Ratio 1.0 (1.0-2.7) Microbiology Date/Time Source Procedure Growth Status 12/12/17 01:48 Nasal Nares MRSA Culture - Final NO METHICILLIN RESISTANT STAPH AUREUS... Complete 12/12/17 01:48 Rectum VRE Culture - Final NO VANCOMYCIN RESISTANT ENTEROCOCCUS ... Complete Intake and Output 12/13/17 12/14/17 19:00 07:00 Intake Total 550 ml 240 ml Balance 550 ml 240 ml Intake Oral 550 ml 240 ml # Voids 5 1 Objective General Appearance: thin, agitated, combative EENT: PERRL/EOMI, normal ENT inspection Neck: non-tender, normal alignment, supple Cardiovascular: normal peripheral pulses, normal rate, regular rhythm, no gallop/murmur, no JVD Respiratory/Chest: chest wall non-tender, lungs clear, normal breath sounds, no respiratory distress, no accessory muscle use Abdomen: normal bowel sounds, non tender, soft, no organomegaly, no mass Extremities: normal range of motion, non-tender Neurologic: form maker II-XII grossly normal, no motor/sensory deficits Skin: normal pigmentation, warm/dry Assessment/Plan Problem List: (1) UTI (urinary tract infection) Assessment & Plan: Continue levaquin and ceftriaxone (2) HTN (hypertension) (3) Glaucoma (4) Acute encephalopathy (5) Agitation Assessment & Plan: 1:1 sitter (6) Alzheimer's dementia Assessment/Plan D/C to [facility] today. EDWARDO JAEGER Dec 14, 2017 18:25
--- NOTE | 2017-12-14 19:40 | Pulmonology Progress Note ---
Assessment/Plan Problems: (1) Acute encephalopathy (2) Agitation (3) Proteinuria (4) Dehydration (5) Alzheimer's dementia (6) ATN (acute tubular necrosis) Assessment/Plan no new complains feeling better change iv abx to po levofloxacin f/u by psychiatry. dc planning Subjective ROS Limited/Unobtainable: No Constitutional: Reports: no symptoms HEENT: Repors: no symptoms Respiratory: Reports: no symptoms Allergies: Coded Allergies: No Known Allergies (Unverified , 12/11/17) Objective Last 24 Hour Vital Signs Date Time Temp Pulse Resp B/P (MAP) Pulse Ox O2 Delivery O2 Flow Rate FiO2 12/14/17 16:00 98.9 92 19 132/70 95 98.9 12/14/17 16:00 Room Air 12/14/17 12:00 Room Air 12/14/17 12:00 97.0 96 19 132/87 95 97.0 12/14/17 08:00 96.0 84 17 112/74 95 96.0 12/14/17 08:00 Room Air 12/14/17 04:00 97.0 68 18 135/83 92 97.0 12/14/17 01:00 97.3 84 20 140/86 93 97.3 12/13/17 23:15 97.1 89 19 146/95 93 97.1 12/13/17 20:00 96.8 79 18 132/84 96 96.8 Intake and Output 12/13/17 12/14/17 19:00 07:00 Intake Total 550 ml 240 ml Balance 550 ml 240 ml Intake Oral 550 ml 240 ml # Voids 5 1 General Appearance: WD/WN HEENT: normocephalic, atraumatic Respiratory/Chest: chest wall non-tender, lungs clear, normal breath sounds Cardiovascular: normal peripheral pulses, normal rate Abdomen: normal bowel sounds, soft, non tender Genitourinary: normal external genitalia Extremities: no cyanosis Neurologic/Psychiatric: insole filler II-XII grossly normal, no motor/sensory deficits Microbiology Date/Time Source Procedure Growth Status 12/12/17 01:48 Nasal Nares MRSA Culture - Final NO METHICILLIN RESISTANT STAPH AUREUS... Complete 12/12/17 01:48 Rectum VRE Culture - Final NO VANCOMYCIN RESISTANT ENTEROCOCCUS ... Complete Laboratory Tests 12/14/17 07:50: White Blood Count 5.4#, Red Blood Count 4.85, Hemoglobin 14.8, Hematocrit 44.3, Mean Corpuscular Volume 91, Mean Corpuscular Hemoglobin 30.5, Mean Corpuscular Hemoglobin Concent 33.4, Red Cell Distribution Width 13.4, Platelet Count 120L, Mean Platelet Volume 8.1, Neutrophils (%) (Auto) 72.9, Lymphocytes (%) (Auto) 15.8L, Monocytes (%) (Auto) 9.7, Eosinophils (%) (Auto) 0.6, Basophils (%) (Auto ) 1.0, Sodium Level 143, Potassium Level 3.5, Chloride Level 107, Carbon Dioxide Level 27, Anion Gap 9, Blood Urea Nitrogen 12, Creatinine 1.1, Estimat Glomerular Filtration Rate , Glucose Level 88, Calcium Level 9.4, Phosphorus Level 2.7, Magnesium Level 1.9, Total Bilirubin 1.2H, Direct Bilirubin 0.3, Aspartate Amino Transf (AST/SGOT) 85H, Alanine Aminotransferase (ALT/SGPT) 45, Alkaline Phosphatase 78, Total Protein 7.0, Albumin 3.5, Globulin 3.5, Albumin/ Globulin Ratio 1.0 Jad Jackson MD Dec 14, 2017 19:40
--- NOTE | 2017-12-15 07:42 | Discharge Summary ---
Discharge Summary Discharge Summary Discharge Summary DATE OF ADMISSION: 12/11/2017 DATE OF DISCHARGE: 12/14/2017 REASON FOR ADMISSION: 82 years old male with history of Alzheimer dementia ,m hypertension was [facility] from the jail facility for complaints of increased agitation. Onset started few days ago as per patient's daughter. Patient was putting things off the wall and his dresser. There was no fever. No slurred speech. No focal deficit. Patient was not a good historian due to the Alzheimer dementia and was unable to provide any history. History was obtained from the jail facility staff and patient's daughter. Upon evaluation in emergency room, vital signs were stable CT of the head revealed no acute intracranial bleeding, mass effect or edema. Moderate atrophy of the brain. Evidence of chronic small vessel disease involving white matter tracts. Urinalysis was positive for leukocyte esterase and protein . Laboratory work showed no leukocytosis, stable hemoglobin and hematocrit. Evidence of mild dehydration with BUN 20 and creatinine 1.4. Troponin was negative. EKG revealed normal sinus rhythm, no acute ischemic changes. Patient was admitted for further management with diagnosis of acute encephalopathy with agitation , dehydration, proteinuria , possible UTI, acute tubular necrosis. CONSULTANTS: pulmonary/critical care Dr. Jackson psychiatrist [facility] COURSE: Patient was admitted to medical surgical floor. Patient started on gentle hydration. Patient started on empiric antibiotic for possible UTI. Supplemental oxygen and pulmonary toilet provided as needed to keep pulse oximetry above 92%. Pulse oximetry was stable on room air. Renal parameters and electrolytes were closely monitored. Nephrotoxics were avoided. Prior to discharge BUN down to 12 creatinine down to 1.1. Lipid panel was within normal limits. Psychiatrist seen and evaluated the patient and diagnosed patient with dementia with behavioral disturbances and encephalopathy. Psychiatric medication regimen was optimized as per psychiatrist. Blood pressure was stable without antihypertensive medications. Supportive care provided. Bowel regimen instituted. Pain management was addressed as needed. Patient condition stabilized and he was stable for return back to jail facility FINAL DIAGNOSES: Acute encephalopathy with agitation Dementia with behavioral disturbances Dehydration Acute tubular necrosis, resolved Possible UTI Hypertension DISCHARGE MEDICATIONS: See Medication Reconciliation list. DISCHARGE INSTRUCTIONS: Patient was discharged to the jail facility. Follow up with medical doctor at the facility. I have been assigned to dictate discharge summary for this account. I was not involved in the patient's management. Michelle Harper NP ([place]) Dec 15, 2017 07:42
[2017-12-20] MEDS ORDERED: Nuedexta Capsule 20/10mg ORAL SCH (09:00)
== END 2017-12-14 17:30 | DRG 689 ==
LOC: EDBD 22:09 → EMR 23:20 → 3E 23:27 → EDBEDREQ 12-12 00:10
DX: N39.0 Urinary tract infection, site not specified (principal); G93.40 Encephalopathy, unspecified; N17.0 Acute kidney failure with tubular necrosis; F02.81 Dementia in other diseases classified elsewhere, unspecified severity, with behavioral disturbance; E86.0 Dehydration; R45.1 Restlessness and agitation; R80.9 Proteinuria, unspecified; G30.9 Alzheimer's disease, unspecified; H40.9 Unspecified glaucoma
CPT/HCPCS: 36415; 70450; 80048; 80053; 80061; 81001; 82248; 82962; 83735; 84100; 84443; 84484; 85007; 85025; 85651; 86140; 87081; 93005; 93970; 99285